=== PATIENT | male | born 2000 | race Caucasian/White ===

== ENCOUNTER 2022-06-03 15:23 | Emergency (ER) | payer SELFPAY ==
[2022-06-03 16:01] VITALS: BP 146/73; PULSE 108; RESP 18; TEMP 37.6; O2SAT 100
--- NOTE | 2022-06-03 17:17 | ED.ALLEREA ---
HPI - Allergic Reaction General Chief complaint: Allergic Reaction Stated complaint: hives, sent by urgent care Time Seen by Provider: 06/03/22 17:00 History of Present Illness HPI narrative: 21 y/o M without known medical history reports for evaluation of an allergic reaction, onset 3 hours ago. Patient states he was at [facility] when he began developing hives, itchiness, swelling to his forehead and lips. Patient reports he took 50 mg of Benadryl p.o., and went to urgent care. States he was given IM epi at urgent care and Solu-Medrol IM 2 hours ago (@ 1500), and advised to come to the ED. Patient reports improvement in urticaria and pruritus since the epi and Solu-Medrol, however he does report mild itching and lip swelling remains. Denies difficulty breathing, SOB, chest pain, n/v/d, abdominal pain. He reports he had a similar allergic reaction 1 month ago, was evaluated by urgent care and given benadryl and steroids wtih relief. 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 He denies new detergents, lotions, medications, pets, soaps, foods. He denies a hx of known allergens. Reports he does not have an epi pen at home. Related Data Allergies Allergy/AdvReac Type Severity Reaction Status Date / Time No Known Allergies Allergy Verified 06/03/22 17:27 Review of Systems Review of Systems: CONSTITUTIONAL: Denies fever, chills EYES: Denies visual changes, redness, or discharge. ENT: Denies rhinorrhea, congestion, sore throat, or otalgia. CARDIOVASCULAR: Denies chest pain, palpitations, or edema. RESPIRATORY: Denies cough or dyspnea. GASTROINTESTINAL: Denies abdominal pain, nausea, vomiting, or diarrhea. GENITOURINARY: Denies dysuria or hematuria. SKIN: See HPI MUSCULOSKELETAL: Denies back pain, joint pain, or myalgia. NEUROLOGIC: Denies headache, numbness, dizziness, or weakness. PSYCHIATRIC: Denies anxiety or depression. Exam Narrative: GENERAL: Well-appearing, well-nourished, and in no acute distress. He is resting comfortably on the exam bed, is friendly and conversational. No respiratory distress. HEAD: Normocephalic, atraumatic. EYES: PERRLA and EOMI. ENT: Nares clear, no rhinorrhea or epistaxis. Mucous membranes moist. Oropharynx without tonsillar hypertrophy exudate or other lesions. Bilateral TMs pearly sinha nonbulging. No tongue, buccal mucosa or pharyngeal swelling. NECK: Supple. No adenopathy or masses. CHEST: Clear to auscultation. No respiratory distress. No wheezes rales or rhonchi. HEART: Regular rate and rhythm. No murmur heard. Normal peripheral pulses. ABDOMEN: Soft, nontender, nondistended, normal active bowel sounds. EXTREMITIES: Normal range of motion. No edema. SKIN: Warm, dry. Diffuse erythematous reticular rash throughout anterior and posterior trunk and BUE, consistent with improving urticaria. No raised wheels. NEURO: No focal deficits. Alert and oriented x3. PSYCH: Normal mood and affect. Course Vital Signs Vital signs: Vital Signs Temperature 99.6 F 06/03/22 16:01 Pulse Rate 108 H 06/03/22 16:01 Respiratory Rate 18 06/03/22 16:01 Blood Pressure 146/73 H 06/03/22 16:01 Pulse Oximetry 100 06/03/22 16:01 Oxygen Delivery Room Air 06/03/22 16:01 Temperature 99.6 F 06/03/22 16:01 Pulse Rate 85 06/03/22 18:54 Respiratory Rate 20 06/03/22 18:54 Blood Pressure 124/68 06/03/22 18:54 Pulse Oximetry 100 06/03/22 18:54 Oxygen Delivery Room Air 06/03/22 16:01 MDM - Allergic Reaction MDM Narrative Medical decision making narrative: 21 y/o M reports for evaluation of an allergic reaction that started ~1300 today with urticaria throughout BUE and trunk. Triage nursing notes reviewed. Pt was seen in urgent care prior to ED arrival and received epi and Solumedrol at 1400, then instructed to come to ED. Vitals stable in triage, tachycardic at 108bpm. Exam revealed generalized reticular erythema to BUE and trunk. No wheezing, respiratory distress. Pt given Pepcid and 1L NS here, a
[2022-06-03] MEDS: FAMOTIDINE 20 MG/2 ML VIAL IV PUSH (17:33)
[2022-06-03] MEDS: SODIUM CHLORIDE 0.9% IV 1,000 ML 999 ML IV CONT (17:33)
[2022-06-03 17:52] VITALS: BP 119/72; PULSE 90; RESP 18; O2SAT 98
[2022-06-03 18:01] VITALS: BP 115/66; PULSE 88; RESP 20; O2SAT 98
[2022-06-03 18:11] VITALS: BP 117/67; PULSE 97; RESP 18; O2SAT 98
[2022-06-03 18:54] VITALS: BP 124/68; PULSE 85; RESP 20; O2SAT 100
== END 2022-06-03 18:56 | disposition home or self-care (01) ==
PROVIDERS: Emergency Provider Physician Assistant
DX: T78.40XA Allergy, unspecified, initial encounter (principal)
CPT/HCPCS: 96361; 96374; 99284; J7030